=== PATIENT | female | born 1940 | race Hispanic/Latino ===

== ENCOUNTER 2017-02-17 06:13 | Day surgery (SDC) | payer MEDICARE, OTHER ==
[2017-02-17 07:29] VITALS: BMI 25.2
[2017-02-17] MEDS ORDERED: Propofol 10 mg/ml Inj (20 ML) ONE ×2 (08:08)
[2017-02-17] MEDS ORDERED: Lidocaine Hydrochloride 5 ML INJ ONE (08:08)
--- NOTE | 2017-02-17 08:09 | CP.SDSHP ---
Same Day Surgery H & P - History Proposed Procedure: colonoscopy Pre-Op Diagnosis: screening - Previous Medical/Surgical History Cardiac: Hypertension - Allergies Allergies: Allergies No Known Allergies Allergy (Verified 02/17/17 07:27) - Physical Exam General Appearance: NAD Vital Signs: Vital Signs 02/17/17 07:39 Temperature 98.4 F Pulse Rate 68 Respiratory 19 Rate Blood Pressure 112/68 O2 Sat by Pulse 97 Oximetry Mental Status: Alert & Oriented x3 Neuro: WNL Heart: WNL Lungs: WNL GI: WNL - {Optional Preform as Required} Abdomen: WNL - Impression Pt. Evaluated Today:Candidate for Anesthesia & Procedure: Yes - Date & Time Date: 02/17/17 Time: 08:09 Short Stay Discharge - Short Stay Discharge Admitting Diagnosis/Reason for Visit: SCREENING Disposition: HOME/ ROUTINE
[2017-02-17] MEDS ORDERED: Lactated Ringer's 1,000 ML IV SCH (08:15)
[2017-02-17 09:03] VITALS: TEMP 96.9
[2017-02-17 09:22] VITALS: RESP 12
[2017-02-17 09:38] VITALS: O2SAT 100
[2017-02-17 09:51] VITALS: BP 148/61; PULSE 57
== END 2017-02-17 09:50 | disposition home or self-care (01) ==
LOC: C.ENDO 06:13
PROVIDERS: ATTEND Internal Medicine Gastroenterology
DX: D12.3 Benign neoplasm of transverse colon (principal); D12.4 Benign neoplasm of descending colon; D12.5 Benign neoplasm of sigmoid colon; I10 Essential (primary) hypertension; K57.30 Diverticulosis of large intestine without perforation or abscess without bleeding; K63.89 Other specified diseases of intestine
CPT/HCPCS: 45380; 45388; 88305; J2704; J7120

== ENCOUNTER 2018-01-04 07:53 | Day surgery (SDC) | payer MEDICARE, OTHER ==
[2018-01-04 08:50] VITALS: BMI 25.0
--- NOTE | 2018-01-04 10:39 | CP.SDSHP ---
Same Day Surgery H & P - History Proposed Procedure: colonoscopy Pre-Op Diagnosis: screening - Previous Medical/Surgical History Cardiac: Hypertension - Allergies Allergies: Allergies No Known Allergies Allergy (Verified 02/17/17 07:27) - Physical Exam General Appearance: NAD Vital Signs: Vital Signs 01/04/18 08:36 Temperature 97.6 F Pulse Rate 66 Respiratory 19 Rate Blood Pressure 140/71 O2 Sat by Pulse 99 Oximetry Mental Status: Alert & Oriented x3 Neuro: WNL Heart: WNL Lungs: WNL GI: WNL - {Optional Preform as Required} Abdomen: WNL - Impression Pt. Evaluated Today:Candidate for Anesthesia & Procedure: Yes - Date & Time Date: 01/04/18 Time: 10:39 Short Stay Discharge - Short Stay Discharge Admitting Diagnosis/Reason for Visit: ENCOUNTER FOR SCREENING FOR MALIGNANT NEOPLASM OF Disposition: HOME/ ROUTINE
[2018-01-04] MEDS ORDERED: Propofol 10 mg/ml Inj (20 ML) ONE (10:52)
[2018-01-04 11:42] VITALS: TEMP 97.8
[2018-01-04 11:47] VITALS: RESP 12; O2SAT 100
[2018-01-04 12:09] VITALS: BP 164/74; PULSE 68
== END 2018-01-04 12:25 | disposition home or self-care (01) ==
LOC: C.ENDO 07:53
PROVIDERS: ATTEND Internal Medicine Gastroenterology
DX: Z12.11 Encounter for screening for malignant neoplasm of colon (principal); D12.3 Benign neoplasm of transverse colon; D12.5 Benign neoplasm of sigmoid colon; K64.8 Other hemorrhoids; I10 Essential (primary) hypertension; K57.30 Diverticulosis of large intestine without perforation or abscess without bleeding
CPT/HCPCS: 45380; 88305; J2001; J2704

== ENCOUNTER 2018-09-27 08:14 | Day surgery (SDC) | payer MEDICARE, OTHER ==
[2018-09-27] MEDS ORDERED: Lactated Ringer's 1,000 ML IV ONE (10:35)
[2018-09-27] MEDS ORDERED: Propofol 10 mg/ml Inj (20 ML) ONE ×2 (10:39→11:15)
[2018-09-27 11:55] VITALS: TEMP 97.8
[2018-09-27 11:59] VITALS: O2SAT 98
[2018-09-27 12:29] VITALS: RESP 18
[2018-09-27 12:36] VITALS: BP 110/66; PULSE 72
== END 2018-09-27 12:35 | disposition home or self-care (01) ==
LOC: C.ENDO 08:14
PROVIDERS: ATTEND Internal Medicine Gastroenterology
DX: K63.5 Polyp of colon (principal); K21.9 Gastro-esophageal reflux disease without esophagitis; Z86.010 Personal history of colon polyps; D12.3 Benign neoplasm of transverse colon; K64.1 Second degree hemorrhoids; K57.30 Diverticulosis of large intestine without perforation or abscess without bleeding; K44.9 Diaphragmatic hernia without obstruction or gangrene; K29.70 Gastritis, unspecified, without bleeding; I10 Essential (primary) hypertension; E78.00 Pure hypercholesterolemia, unspecified
CPT/HCPCS: 43239; 45380; 88305; J2001; J2704; J7120